=== PATIENT | male | born 1990 | race Caucasian/White ===

== ENCOUNTER 2018-12-01 16:58 | Emergency (ER) | payer OTHER ==
[~2018-12-01] VITALS: Ht 167.6 cm; Wt 68.0 kg
[2018-12-01] MEDS ORDERED: NAPROSYN500 MG PO (18:04)
[2018-12-01 18:41] VITALS: BP 127/76
== END 2018-12-01 18:48 | disposition home or self-care (01) ==
LOC: ER 16:58
DX: S06.0X0A Concussion without loss of consciousness, initial encounter (principal); S00.01XA Abrasion of scalp, initial encounter; W20.8XXA Other cause of strike by thrown, projected or falling object, initial encounter; Y92.89 Other specified places as the place of occurrence of the external cause; Y93.89 Activity, other specified; Y99.8 Other external cause status